=== PATIENT | female | born 1970 | race Hispanic/Latino ===

== ENCOUNTER 2019-02-19 19:50 | Emergency (ER) | payer BC, MEDICAID, OTHER ==
[2019-02-19 20:24] VITALS: TEMP 98.5
[2019-02-19] MEDS ORDERED: metroNIDAZOLE 500 MG TAB PO ONE (20:55)
[2019-02-19] MEDS ORDERED: CIPROFLOXACIN 500 MG TAB PO ONE (20:55)
--- NOTE | 2019-02-19 21:08 | ED.PDOC ---
History of Present Illness - General Chief Complaint: GI Problem Stated Complaint: diarrhea x's 8 days Time Seen by Provider: 02/19/19 19:57 Source: patient Exam Limitations: no limitations - History of Present Illness Initial Comments: he patient's a 48-year-old female presenting to the emergency room secondary to diarrhea for 8 days duration. 8-10 episodes per day. No blood. No real pain or fever. o epigastric pain but poor appetite. No syncope or near syncope. She still has her gallbladder and her appendix but there is no pain over either side. No history of any food intolerances. She did just traveled to [place] on 03 February.she does apparently have chronic lymphopenia and is followed byhematology. Timing/Duration: other - 8 days Severity: moderate Improving Factors: nothing Worsening Factors: nothing Associated Symptoms: malaise, nausea/vomiting Allergies/Adverse Reactions: Allergies NO KNOWN ALLERGY Allergy (Verified 02/19/19 20:23) Home Medications: Ambulatory Orders Atorvastatin Calcium 40 mg PO BEDTIME 02/19/19 Cetirizine HCl [Zyrtec Allergy] 10 mg PO DAILY 02/19/19 Ciprofloxacin [Cipro] 500 mg PO BID #10 tab 02/19/19 Ergocalciferol [Vitamin D2] 50,000 iu PO WKLY 02/19/19 Famotidine [Pepcid Tab] 20 mg PO BID #60 tab 02/19/19 Gemfibrozil 600 mg PO BID 02/19/19 Glimepiride 1 mg PO DAILY 02/19/19 Losartan Potassium 25 mg PO DAILY 02/19/19 Metformin HCl [Metformin HCl ER] 1,000 mg PO BID 02/19/19 Metronidazole 500 mg PO TID #14 tab 02/19/19 Ondansetron Odt [Zofran ODT] 8 mg PO Q8HR PRN 02/19/19 Review of Systems - Review of Systems Constitutional: States: malaise EENTM: States: no symptoms reported Respiratory: States: no symptoms reported Cardiology: States: no symptoms reported Gastrointestinal/Abdominal: States: see HPI Genitourinary: States: no symptoms reported Musculoskeletal: States: no symptoms reported Skin: States: no symptoms reported Neurological: States: no symptoms reported Endocrine: States: no symptoms reported All other Systems: No Change from Baseline Past Medical History (General) - Patient Medical History Hx Seizures: No Hx Stroke: No Hx Dementia: No Hx Asthma: No Hx of COPD: No Hx Cardiac Disorders: No Hx Congestive Heart Failure: No Hx Pacemaker: No Hx Hypertension: Yes Hx Thyroid Disease: No Hx Diabetes: Yes Hx Gastroesophageal Reflux: No Hx Renal Disease: No Hx Cancer: No Hx of HIV: No Hx Hepatitis C: No Hx MRSA: No Surgical History: Hysterectomy - Social History Hx Tobacco Use: No - Female History Hx Last Menstrual Period: 01/18/12 Expected Date of Delivery:: 10/09/12 Family Medical History - Family History Mother Family History: Unknown Physical Exam - Physical Exam General Appearance: Alert, Comfortable, No apparent distress Eye Exam: bilateral normal Ears, Nose, Throat: hearing grossly normal, normal ENT inspection Neck: full range of motion, supple Respiratory: lungs clear, normal breath sounds, no respiratory distress, no accessory muscle use Cardiovascular/Chest: normal peripheral pulses, regular rate, rhythm, no edema Peripheral Pulses: radial,right: 2+, radial,left: 2+, dorsalis pedis,right: 2+, dorsalis pedis,left: 2+ Gastrointestinal/Abdominal: non tender, soft Rectal Exam: deferred Back Exam: no CVA tenderness, no vertebral tenderness Extremity: non-tender, normal inspection, no pedal edema, normal capillary refill Neurologic: squad boss II-XII nml as tested, alert, normal mood/affect, oriented x 3 Skin Exam: normal color Comments: Vital Signs - 24 hr 02/19/19 19:58 Temperature 98.5 F Pulse Rate [ 90 monitor] Respiratory 16 Rate Blood Pressure 138/80 [Left Arm] O2 Sat by Pulse 97 Oximetry Progress - Progress Progress: 02/19/19 21:09 the patient's a 48-year-old female presenting to the emergency room secondary to 8 days of diarrhea. Laboratory work aside from chronic issues is reassuring. The patient will be placed on metronidazole and ciprofloxacin for 5 days. She can start taking [id number] probiotic or a yogurt of her choice for the next 2 weeks. Additionally she will be placed on Pepcid twice daily. she needs to maintain a bland diet and keep herself well hydrated. If symptoms change or worsen in any significant way then she needs to be reevaluated. she needs to hold the gemfibrozil and atorvastatin for the next couple of weeks. Additionally holding metformin for the next 2 days may also show some benefit. ER warnings were given. Follow-up with primary care doctor later this coming week. - Results/Orders Results/Orders: Laboratory Tests 02/19/19 02/19/19 02/19/19 20:07 20:07 20:07 WBC 3.0 L RBC 5.33 Hgb 13.9 Hct 42.5 MCV 79.7 L MCH 26.1 L MCHC 32.7 L RDW 13.5 Plt Count 187 MPV 8.8 Absolute Neuts (auto) 1.10 L Absolute Lymphs (auto) 1.20 Absolute Monos (auto) 0.50 Absolute Eos (auto) 0.10 Absolute Basos (auto) 0.00 Neutrophils % 38.1 L Lymphocytes % 39.2 Monocytes % 16.6 H Eosinophils % 4.8 Basophils % 1.3 Sodium 138 Potassium 3.6 Chloride 105 Carbon Dioxide 24 Anion Gap 12.6 BUN 8 Creatinine 0.56 L BUN/Creatinine Ratio 14.3 Random Glucose 127 H Serum Osmolality 275.6 Calcium 8.7 Magnesium 1.9 Total Bilirubin 0.3 AST 26 ALT 43 Alkaline Phosphatase 61 Serum Total Protein 6.4 Albumin 3.7 Globulin 2.7 Albumin/Globulin Ratio 1.4 Amylase 49 Lipase 26 Urine Color Urine Appearance Urine pH Ur Specific [place] Urine Protein Urine Glucose (UA) Urine Ketones Urine Blood Urine Nitrite Urine Bilirubin Urine Urobilinogen Ur Leukocyte Esterase Urine RBC Urine WBC Ur Epithelial Cells Urine Bacteria Urine HCG, Qual Negative 02/19/19 20:19 WBC RBC Hgb Hct MCV MCH MCHC RDW Plt Count MPV Absolute Neuts (auto) Absolute Lymphs (auto) Absolute Monos (auto) Absolute Eos (auto) Absolute Basos (auto) Neutrophils % Lymphocytes % Monocytes % Eosinophils % Basophils % Sodium Potassium Chloride Carbon Dioxide Anion Gap BUN Creatinine BUN/Creatinine Ratio Random Glucose Serum Osmolality Calcium Magnesium Total Bilirubin AST ALT Alkaline Phosphatase Serum Total Protein Albumin Globulin Albumin/Globulin Ratio Amylase Lipase Urine Color Yellow Urine Appearance Clear Urine pH 7.0 Ur Specific [place] 1.010 Urine Protein Negative Urine Glucose (UA) Negative Urine Ketones Negative Urine Blood Trace-intact H Urine Nitrite Negative Urine Bilirubin Negative Urine Urobilinogen 0.2 Ur Leukocyte Esterase Negative Urine RBC 0-1 Urine WBC 0 Ur Epithelial Cells 1-3 Urine Bacteria 2+ H Urine HCG, Qual Departure - Departure Clinical Impression: Diarrhea Qualifiers: Diarrhea type: presumed infectious Qualified Code(s): R19.7 - Diarrhea, unspecified Gastritis Qualifiers: Gastritis type: unspecified gastritis Chronicity: acute Gastritis bleeding: without bleeding Qualified Code(s): K29.00 - Acute gastritis without bleeding Disposition: Discharge to Home or Self Care Condition: Fair Departure Forms: ED Discharge - Pt. Copy, Patient Portal Self Enrollment Instructions: DI for Diarrhea and Traveler's Diarrhea -- Adult, DI for Gastritis Diet: bland diet, diabetic diet Activity: increase activity as tolerated Referrals: UNKNOWN,PHYSICIAN [Primary Care Provider] - 1-5 Days Prescriptions: Ciprofloxacin [Cipro] 500 mg PO BID #10 tab Famotidine [Pepcid Tab] 20 mg PO BID #60 tab Metronidazole 500 mg PO TID #14 tab Home Medications: Ambulatory Orders Atorvastatin Calcium 40 mg PO BEDTIME 02/19/19 Cetirizine HCl [Zyrtec Allergy] 10 mg PO DAILY 02/19/19 Ciprofloxacin [Cipro] 500 mg PO BID #10 tab 02/19/19 Ergocalciferol [Vitamin D2] 50,000 iu PO WKLY 02/19/19 Famotidine [Pepcid Tab] 20 mg PO BID #60 tab 02/19/19 Gemfibrozil 600 mg PO BID 02/19/19 Glimepiride 1 mg PO DAILY 02/19/19 Losartan Potassium 25 mg PO DAILY 02/19/19 Metformin HCl [Metformin HCl ER] 1,000 mg PO BID 02/19/19 Metronidazole 500 mg PO TID #14 tab 02/19/19 Ondansetron Odt [Zofran ODT] 8 mg PO Q8HR PRN 02/19/19 Additional Instructions: the patient's a 48-year-old female presenting to the emergency room secondary to 8 days of diarrhea. Laboratory work aside from chronic issues is reassuring. The patient will be placed on metronidazole and ciprofloxacin for 5 days. She can start taking [id number] probiotic or a yogurt of her choice for the next 2 weeks. Additionally she will be placed on Pepcid twice daily. she needs to maintain a bland diet and keep herself well hydrated. If symptoms change or worsen in any significant way then she needs to be reevaluated. she needs to hold the gemfibrozil and atorvastatin for the next couple of weeks. Additionally holding metformin for the next 2 days may also show some benefit. ER warnings were given. Follow-up with primary care doctor later this coming week.
[2019-02-19 21:25] VITALS: BP 135/78; O2SAT 98
== END 2019-02-19 21:26 | disposition home or self-care (01) ==
LOC: ER 19:50
DX: K29.00 Acute gastritis without bleeding (principal); I10 Essential (primary) hypertension; E11.9 Type 2 diabetes mellitus without complications; Z79.84 Long term (current) use of oral hypoglycemic drugs; Z79.899 Other long term (current) drug therapy